=== PATIENT | male | born 1955 | race Caucasian/White ===

== ENCOUNTER 2019-01-27 19:40 | Emergency (ER) | payer SELFPAY ==
[~2019-01-27] VITALS: Ht 182.9 cm; Wt 111.1 kg
[~2019-01-27 19:40] MED LIST: AMOX500C2 PO; HYDR-3816 PO
[2019-01-27] MEDS ORDERED: methylPREDNISolone 125 MG (Solu-MEDROL) VIAL IVP ONE (20:15)
[2019-01-27] MEDS ORDERED: diphenhydrAMINE 50 MG/ML INJ (BENADRYL) IVP ONE (20:15)
[2019-01-27] MEDS ORDERED: FAMOTIDINE 20MG/2ML IV (PEPCID) IVP ONE (20:15)
[2019-01-27 20:16] LABS: BASOPHILS % (AUTO) 0 % (0-10); EOSINOPHILS # (AUTO) 0.1 10^3/uL (0.0-0.3); EOSINOPHILS % (AUTO) 1 % (0-10); HEMATOCRIT 44 % (40-54); HEMOGLOBIN 15.8 G/DL (13.3-17.7); LYMPHOCYTES # (AUTO) 2.7 X 10^3 (1.0-4.0); LYMPHOCYTES % (AUTO) 23 % (12-44); MEAN CORPUSCULAR HEMOGLOBIN 29 PG (25-34); MEAN CORPUSCULAR HGB CONC 36 G/DL (32-36); MEAN CORPUSCULAR VOLUME 81 FL (80-99); MEAN PLATELET VOLUME 9.7 FL (7.4-10.4); MONOCYTES % (AUTO) 9 % (0-12); NEUTROPHILS # (AUTO) 7.9 X 10^3 (1.8-7.8); NEUTROPHILS % (AUTO) 67 % (42-75); PLATELET COUNT 253 10^3/uL (130-400); RED CELL DISTRIBUTION WIDTH 12.9 % (10.0-14.5); WHITE BLOOD COUNT 11.7 10^3/uL (4.3-11.0)
[2019-01-27 20:27] LABS: PROTHROMBIN TIME PATIENT 13.3 SEC (12.2-14.7)
[2019-01-27 20:34] LABS: ALANINE AMINOTRANSFERASE 29 U/L (0-55); ALKALINE PHOSPHATASE 73 U/L (40-136); BILIRUBIN,TOTAL 0.6 MG/DL (0.1-1.0); BUN/CREATININE RATIO 10; CARBON DIOXIDE 23 MMOL/L (21-32); CHLORIDE 106 MMOL/L (98-107); GFR ESTIMATED > 60; GLUCOSE 175 MG/DL (70-105); MAGNESIUM 2.3 MG/DL (1.8-2.4); POTASSIUM 3.7 MMOL/L (3.6-5.0); SODIUM 139 MMOL/L (135-145); TOTAL PROTEIN 6.8 GM/DL (6.4-8.2)
--- NOTE | 2019-01-27 20:56 | Diagnostic Imaging Report ---
INDICATION: Chest tightness. Hives. FINDINGS: Portable chest. The lungs are well-aerated and clear. Heart is not enlarged. There is no pulmonary edema. No hilar adenopathy. No pneumothorax or pleural effusion. IMPRESSION: Normal portable chest. Dictated by: Dictated on workstation # [id number]
--- NOTE | 2019-01-27 21:54 | ED General ---
General Chief Complaint: Chest Wall Stated Complaint: HIVES Nursing Triage Note: AMBULATORY TO ED WITH C/O HIVES/WELTS THAT STARTED A WEEK AGO. STATES HE USED LEATHER CONDITIONER FOR CAR SEATS ON BOOTS AND THEN STARTED NOTICING ITCHINESS TO HANDS AND FEET THAT LATER DEVELOPED INTO HIVES. HE WENT TO URGENT CARE LAST MONDAY AND WAS GIVEN A STEROID SHOT AND BENADRYL. THIS PROVIDED SOME RELIEF WITHOUT COMPLETE RESOLUTION OF HIVES. HAS BEEN TAKING SHAKIRA. PRESENTS TONIGHT WITH RED WELTS GENERALIZED OVER ENTIRE BODY AND CHEST TIGHTNESS. DENIES SOA. Nursing Sepsis Screen: No Definite Risk Source of Information: Patient Exam Limitations: No Limitations History of Present Illness Date Seen by Provider: Jan 27, 2019 Time Seen by Provider: 20:06 Initial Comments 63-year-old male who presents to the emergency room with complaints of a hives that started on his feet that spread all over his body after using a leather conditioner for car seat on his boots. He reports that his feet started itching and spread to hives. He was seen 5 days ago at urgent care and was given a shot of steroids and Benadryl that improved symptoms for a while but has since returned. He also reports that he has had some chest tightness for the past 2 days. He denies shortness of breath, lightheadedness, nausea, vomiting. Timing/Duration: 1 Week Associated Systoms: Chest Pain (tightness), Rash Allergies and Home Medications Allergies Coded Allergies: iodine (Unverified Allergy, Unknown, 02/27/15) morphine (Unverified Allergy, Unknown, 02/27/15) Home Medications Prednisone 20 Mg Tab, 40 MG PO DAILY Prescribed by: BETHANY TALBERT on 01/27/19 9605 Patient Home Medication List Home Medication List Reviewed: Yes Review of Systems Review of Systems Constitutional: see HPI; No chills, No fever Cardiovascular: see HPI, other (chest tightness) Skin: see HPI, rash (hives) All Other Systems Reviewed Negative Unless Noted: Yes Past Quckwra-Lzplic-Fyuhwy Hx Past Med/Social Hx: Reviewed Nursing Past Med/Soc Hx Patient Social History Alcohol Use: Denies Use Recreational Drug Use: No Smoking Status: Former Smoker Recent Foreign Travel: No Contact w/Someone Who Travel: No Recent Infectious Disease Expo: No Recent Hopitalizations: No Seasonal Allergies Seasonal Allergies: No Past Medical History Surgeries: Yes (TRIGEMINAL SURGERY; RIGHT INGUINAL HERNIA REPAIR) Respiratory: No Cardiac: Yes Hypertension Neurological: No (HX TRIGEMINAL NEURALGIA) Genitourinary: No Gastrointestinal: No Musculoskeletal: No Endocrine: No HEENT: No Cancer: No Psychosocial: No Family Medical History Reviewed Nursing Family Hx No Pertinent Family Hx Physical Exam Vital Signs Vital Signs - First Documented 01/27/19 01/27/19 19:59 22:33 Temp 98.1 Pulse 102 Resp 18 B/P (MAP) 152/101 (118) Pulse Ox 96 O2 Delivery Room Air Capillary Refill : Less Than 3 Seconds Height, Weight, BMI Height: 6'0" Weight: 245lbs. oz. 111.622322ry; 33.22 BMI Method:Stated General Appearance: No Apparent Distress, WD/WN Respiratory: Chest Non Tender, Lungs Clear, Normal Breath Sounds, No Accessory Muscle Use, No Respiratory Distress Cardiovascular: Regular Rate, Rhythm, No Edema, No Gallop, No JVD, No Murmur, Normal Peripheral Pulses Extremity: Normal Capillary Refill Neurologic/Psychiatric: Alert, Oriented x3, Normal Mood/Affect Skin: Normal Color, Warm/Dry, Other (generalized hives all over his body) Progress/Results/Core Measures Suspected Sepsis Recent Fever Within 48 Hours: No Infection Criteria Present: None New/Unexplained Altered Menta: No Sepsis Screen: No Definite Risk SIRS Temperature:98.1 Pulse: 102 Respiratory Rate: 18 Laboratory Tests 01/27/19 20:10: White Blood Count 11.7H Blood Pressure 152 /101 Mean: 118 Laboratory Tests 01/27/19 20:10: Creatinine 1.10, INR Comment 1.0, Platelet Count 253, Total Bilirubin 0.6 Results/Orders Lab Results My Orders Medications Given in ED Vital Signs/I&O Capillary Refill : Less Than 3 Seconds Blood Pressure Mean: 118 Progress Note : Time: 21:53 Progress Note I have seen and evaluated the patient. I have discussed his laboratory findings with him. His hives have improved throughout his stay. We will continue steroids for the next few days to see if this alleviates his. Instructed to stay away from the suspected allergen. He agrees with plan of care, plans for discharge, return precautions were given. ECG Initial ECG Impression Date: Jan 27, 2019 Initial ECG Impression Time: 20:16 Initial ECG Rate: 92 Initial ECG Rhythm: Normal Sinus Initial ECG Intervals: Normal Initial ECG Impression: Normal Initial ECG Comparisson: No Previous ECG Available Diagnostic Imaging Diagonstic Imaging: Xray Plain Films/CT/US/NM/MRI: chest Comments NAME: JEANINE SHIPLEY [facility] REC#: [id number] PT STATUS: REG ER : 1955 PHYSICIAN: BETHANY TALBERT ADMIT DATE: 01/27/19/ER Signed Date of Exam: 01/27/19 CHEST 1 VIEW, AP/PA ONLY INDICATION: Chest tightness. Hives. FINDINGS: Portable chest. The lungs are well-aerated and clear. Heart is not enlarged. There is no pulmonary edema. No hilar adenopathy. No pneumothorax or pleural effusion. IMPRESSION: Normal portable chest. Dictated by: Dictated on workstation # [id number] Dict: 01/27/192048 Trans: 01/27/192131 Interpreted by: BERNADETTE PIÑA MD Electronically signed by: BERNADETTE PIÑA MD 01/27/192131 Reviewed: Reviewed by Me Departure Impression Primary Impression: Hives Additional Impressions: Allergic reaction Chest tightness or pressure Disposition: 01 HOME, SELF-CARE Condition: Stable/Unchanged Departure-Patient Inst. Decision time for Depature: 21:53 Referrals: NO,LOCAL PHYSICIAN (PCP) Primary Care Physician ANGELIQUE VELASQUEZ MD (Family) Primary Care Physician Patient Instructions: Hives (DC), Chest Pain (DC) Add. Discharge Instructions: Continue to use your Shakira [id number] as previously instructed. Start taking Benadryl and Pepcid orally as directed by the bottle. Take prednisone as directed. Avoid the allergen that is suspected on the boots. Follow-up with primary care provider within 1 week for recheck. Return back to the emergency room for worsening symptoms or concerns as needed. All discharge instructions reviewed with patient and/or family. Voiced understanding. Scripts Prednisone (Prednisone) 20 Mg Tab 40 MG PO DAILY for 4 Days, #8 TAB 0 Refills Prov: BETHANY TALBERT 01/27/19 BETHANY TALBERT Jan 27, 2019 21:54
[2019-01-27] MEDS ORDERED: PRD20T PO (22:28)
[2019-01-27 22:33] VITALS: BP 145/97
== END 2019-01-27 22:35 | disposition home or self-care (01) ==
LOC: EDUNIT# 19:40 → ER 19:42
DX: L50.0 Allergic urticaria (principal); R07.89 Other chest pain; I10 Essential (primary) hypertension; Z91.041 Radiographic dye allergy status; Z88.5 Allergy status to narcotic agent; Z79.52 Long term (current) use of systemic steroids; Z87.891 Personal history of nicotine dependence; Z98.890 Other specified postprocedural states
CPT/HCPCS: 36415; 71045; 80053; 83735; 83874; 84484; 85025; 85610; 85730; 93005; 93041; 96374; 96375